=== PATIENT | male | born 1980 | race Caucasian/White ===

== ENCOUNTER 2017-04-28 21:05 | Emergency (ER) | payer MEDICARE, OTHER ==
[~2017-04-28] VITALS: Ht 185.4 cm; Wt 65.8 kg
== END 2017-04-28 21:45 | disposition home or self-care (01) ==
LOC: ED 21:05
PROC: 0HQ0XZZ Repair Scalp Skin, External Approach (ICD-10-PCS; principal; 2017-04-28)
DX: S01.01XA Laceration without foreign body of scalp, initial encounter (principal); Z91.041 Radiographic dye allergy status; Z91.013 Allergy to seafood; W22.8XXA Striking against or struck by other objects, initial encounter
CPT/HCPCS: 12002; 90471; 90715; 99282

== ENCOUNTER 2020-03-20 06:55 | Day surgery (SDC) | payer OTHER ==
[~2020-03-20] VITALS: Ht 185.4 cm; Wt 65.8 kg
--- NOTE | ~2020-03-20 | OR ---
[facility] [address], [place] [address] [place] DATE OF OPERATION: 03/20/2020 SURGEON: Manolo Gómez MD PREOPERATIVE DIAGNOSIS: Septal deformity. POSTOPERATIVE DIAGNOSIS: Septal deformity. PROCEDURE: Septoplasty. ANESTHESIA: General LMA; Ramsey WOOD. PREOPERATIVE HISTORY: Bhavin is a 39-year-old man with a long history of nasal obstruction, history of nasal trauma. Exam has shown septal deformity. He has been unresponsive to appropriate medications and he is taken to the operating room for the above-mentioned procedures. PROCEDURE AND FINDINGS: After informed consent, the patient was taken to the operating room, placed in supine position, where general LMA anesthesia was induced. The patient and procedure were verified. The patient was repositioned. The patient received preoperative intravenous Ancef and intranasal oxymetazoline. Headlight speculum exam of the nasal cavity showed several septal deformities, primarily of the caudal deflection of the septum to the left side, which was obstructive. There were spurs on both sides of the septum inferiorly in the nasal passage, which were obstructive. The septal mucosa was injected with 1% lidocaine with epi. The mucosa overlying the spurs on the right and left side of the septum were elevated with a Shawnee elevator. Deviated septal bone and cartilage were then removed with Rojas. Airway was improved in this manner. The caudal deflection was approached 1% lidocaine with epi was injected in the mucosa overlying the caudal deflection on the left side of the nose. Incision was made through mucosa. Dissection with a Kev elevator revealed the caudal edge of the septum, which the deviated portion of which was excised with Rojas. The airway was improved. Minimal bleeding. The incision was closed with 4-0 interrupted Vicryl. Packing was then placed, trimmed, Merocel equal amount each side, coated with Neosporin tied anteriorly over a pad. The pharynx was suctioned clear of blood and secretions. The PATIENT NAME: BHAVIN NATION OPERATIVE REPORT DATE OF : 84 REPORT #: [id number] PHYSICIAN: MANOLO GÓMEZ MD PCP: ARELY MAYORGA REPORT IS CONFIDENTIAL AND NOT TO BE RELEASED WITHOUT AUTHORIZATION [facility] [address] [place] [id number] [place] patient was then awakened, extubated, transported to recovery room in good condition. No complications. BLOOD LOSS: Minimal. SPECIMEN: No Specimen. DRAINS: No drains. PACKING: One piece of Merocel each nostril. aMnolo Gómez MD GC/MODL /[id number] Copies: ~ PATIENT NAME: BHAVIN NATION OPERATIVE REPORT DATE OF : 84 REPORT #: [id number] PHYSICIAN: MANOLO GÓMEZ MD PCP: ARELY MAYORGA REPORT IS CONFIDENTIAL AND NOT TO BE RELEASED WITHOUT AUTHORIZATION
[~2020-03-20 06:55] MED LIST: EPINEPHRIN0.3 MG/0.3 IM; FISH OIL 1,0001 EAC2 NG; MULTIVITAMINS1 EAC7 PO; NEURONTIN100 MG PO; PEPCID AC10 MG PO; RANITIDINE HCL150 M1; ROPINIROLE HCL0.5 MG PO; SODIUM FLUORIDE56 GM DT; VITAMIN D325 MC2 PO
--- NOTE | 2020-03-20 07:48 | NUR ---
AFRIN NASAL SPRAY GIVEN Q15 MIN PER MD ORDER IN CHART. EMAR IS NOT YET UPDATED.
--- NOTE | 2020-03-20 09:28 | NUR ---
03/20/20 0928 [place],Gris 0902 PT ARRIVED TO PACU ON 6L VIA MASK WITH ORAL AIRWAY IN PLACE. PT NONAROUSABLE TO PAINFUL STIMULI. VSS.
[2020-03-20] MEDS ORDERED: KEFLEX500 MG PO (10:19)
[2020-03-20] MEDS ORDERED: NORCO 5-325 TA1 EACH PO (10:19)
--- NOTE | 2020-03-20 11:07 | NUR ---
APPLESAUCE GIVEN. PATIENT IS SITTING UP IN BED EATING THAT AND TOLERATING IT WELL.
--- NOTE | 2020-03-20 11:26 | NUR ---
AMBULATED TO BR WITHOUT PROBLEMS. STEADY ON FEET WITH ONE PERSON STAND BY ASSIST. DENIES NAUSEA. REPORTS 1-2/10 DECREASING NOSE PAIN.
== END 2020-03-20 11:25 | disposition home or self-care (01) ==
LOC: OPS 06:55 → DS 06:55 → OPS 08:15
PROVIDERS: Otolaryngology
PROC: 09SM4ZZ Reposition Nasal Septum, Percutaneous Endoscopic Approach (ICD-10-PCS; principal; 2020-03-20 08:15)
DX: J34.2 Deviated nasal septum (principal); K21.9 Gastro-esophageal reflux disease without esophagitis; F17.290 Nicotine dependence, other tobacco product, uncomplicated; Z91.09 Other allergy status, other than to drugs and biological substances; Z79.899 Other long term (current) drug therapy
CPT/HCPCS: 00160; J0690; J1100; J1885; J2001; J2405; J2704; J3010; J7121